=== PATIENT | female | born 1955 | race Caucasian/White ===

== ENCOUNTER 2018-12-03 19:14 | Emergency (ER) | payer BC ==
[~2018-12-03] VITALS: Ht 165.1 cm; Wt 56.7 kg
[2018-12-03 19:38] VITALS: BP_SYST 131
--- NOTE | 2018-12-03 19:38 | NUR ---
Patient to ER bed 04 to gown for evaluation. Side rails up. Report given to BENJI Crooks.
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
--- NOTE | 2018-12-03 20:03 | NUR ---
ER Dr. Barajas at bedside examining patient.
[2018-12-03 20:23] LABS: BASOPHILS % (AUTO) 0.8 % (0.0-2.0); EOSINOPHILS # (AUTO) 0.1 K/uL (0.0-0.4); EOSINOPHILS % (AUTO) 0.8 % (0.0-4.0); HEMATOCRIT 41.5 % (36-48); LYMPHOCYTES # (AUTO) 1.7 K/uL (1.0-5.5); LYMPHOCYTES % (AUTO) 26.9 % (20.5-51.5); MEAN CORPUSCULAR HEMOGLOBIN 30 pg (27-31); MEAN CORPUSCULAR HGB CONC 34 % (32-36); MEAN CORPUSCULAR VOLUME 90 fL (79.0-98.0); MONOCYTES # (AUTO) 0.4 K/uL (0.0-1.0); MONOCYTES % (AUTO) 6.8 % (1.7-9.3); NEUTROPHILS % (AUTO) 64.7 % (40.0-70.0); PLATELET COUNT (AUTO) 251 K/uL (130-430); RED BLOOD CELL COUNT(AUTO) 4.63 MIL/uL (4.2-6.2); RED CELL DISTRIBUTION WIDTH 13.2 % (9.0-15.0); WHITE BLOOD COUNT (AUTO) 6.2 K/uL (4.8-10.8)
[2018-12-03 20:32] LABS: CALCIUM 9.1 mg/dL (8.4-11.0); CREATININE 1.01 mg/dL (0.55-1.30); PROTHROMBIN TIME 10.1 SECS (9.5-12.5)
[2018-12-03] MEDS: NACL 0.9% 1,000 ML IV ONE (20:33)
[2018-12-03] MEDS: KETOROLAC TROMETHAMINE 30 MG VIAL IVP ONE (20:34)
[2018-12-03 20:44] LABS: BILIRUBIN,URINE NEGATIVE (NEGATIVE); BLOOD, URINE NEGATIVE (NEGATIVE); CLARITY/URINE CLEAR (CLEAR); COLOR,URINE YELLOW (YELLOW); GLUCOSE,URINE NEGATIVE (NEGATIVE); KETONES,URINE NEGATIVE (NEGATIVE); LEUKOCYTE ESTERASE ,URINE NEGATIVE (NEGATIVE); NITRITE, URINE NEGATIVE (NEGATIVE); PROTEIN URINE NEGATIVE (NEGATIVE); UROBILINOGEN,URINE 0.2 (0.2-1.0)
[2018-12-03 20:49] LABS: ALBUMIN 3.8 g/dL (3.4-4.8); TOTAL BILIRUBIN 0.4 mg/dL (0.0-1.0)
[2018-12-03 21:48] VITALS: BP_SYST 127
--- NOTE | 2018-12-03 21:48 | NUR ---
Patient given written and verbal discharge instructions and verbalizes understanding. ER MD discussed with patient the results and treatment provided. Patient in stable condition. ID arm band removed. IV catheter removed intact and dressing applied, no active bleeding. Rx of Naprosyn given. Patient educated on pain management and to follow up with PMD. Pain Scale 0. Opportunity for questions provided and answered. Medication side effect fact sheet provided.
== END 2018-12-03 21:48 | disposition home or self-care (01) ==
LOC: SED 19:14
DX: S20.219A Contusion of unspecified front wall of thorax, initial encounter (principal); V89.2XXA Person injured in unspecified motor-vehicle accident, traffic, initial encounter; Y93.89 Activity, other specified; Y92.410 Unspecified street and highway as the place of occurrence of the external cause; Y99.8 Other external cause status
CPT/HCPCS: 36415; 71045; 80053; 81003; 82150; 82550; 83605; 83690; 84484; 85025; 85610; 85730; 87040; 93005; 96374; 99284; J1885; J7030

== ENCOUNTER 2019-12-29 10:42 | Outpatient (CLI) | payer BC | END 2019-12-29 18:59 | disposition home or self-care (01) | LOC: SCA 10:42 | DX: Z41.1 Encounter for cosmetic surgery (principal) | CPT/HCPCS: 93005 ==

== ENCOUNTER 2024-01-27 11:38 | Emergency (ER) | payer BC, OTHER ==
[~2024-01-27] VITALS: Ht 167.6 cm; Wt 54.4 kg
[2024-01-27 11:57] VITALS: BP_SYST 134; PULSE 85; RESP 16; TEMP 97.8; O2SAT 98
[2024-01-27] MEDS: KETOROLAC TROMETHAMINE 60 MG/2 ML VIAL IM ONE (12:32)
[2024-01-27] MEDS ORDERED: IBUP-1969 PO (13:15)
[2024-01-27] MEDS ORDERED: HYDR-3917 PO (13:15)
[2024-01-27 13:54] VITALS: BP_SYST 134; PULSE 85; RESP 16; TEMP 97.8; O2SAT 98
== END 2024-01-27 13:53 | disposition home or self-care (01) ==
LOC: SED 11:38
DX: M25.562 Pain in left knee (principal)
CPT/HCPCS: 99283; 29505; 73564; 96372; J1885